=== PATIENT | female | born 1995 | race Caucasian/White ===

== ENCOUNTER 2020-01-06 14:14 | Emergency (ER) | payer BC ==
[~2020-01-06] VITALS: Ht 177.8 cm; Wt 63.5 kg
--- NOTE | 2020-01-06 14:15 | NUR ---
BIB SELF C/O R SIDED CHEST PAIN FOR 4 DAYS. TESTED NEGATIVE FOR COVID NOV 2019. TO ER BED 6, HOOKED TO MONITOR, CHANGED TO HOSP GOWN, WARM BLANKET PROVIDED, PATIENT AAO x 4, BREATHING EVEN AND UNLABORED, DR FINE AT BEDSIDE
--- NOTE | 2020-01-06 14:49 | NUR ---
ACCOMPANIED DR FINE AT BEDSIDE WHILE DOING CARDIAC COLETTE
--- NOTE | 2020-01-06 14:50 | NUR ---
DR FINE AT BEDSIDE FOR CARDIAC COLETTE
[2020-01-06 14:59] VITALS: BP 129/71
--- NOTE | 2020-01-06 14:59 | NUR ---
Patient discharged to home in stable condition. Written and verbal after care instructions given. Patient verbalizes understanding of instruction.
== END 2020-01-06 14:59 | disposition home or self-care (01) ==
LOC: ER 14:19
DX: R07.89 Other chest pain (principal); Z60.2 Problems related to living alone